=== PATIENT | female | born 1985 | race African-American/Black ===

== ENCOUNTER → 2018-11-27 | Outpatient (CLI) | payer OTHER ==
--- NOTE | 2018-11-27 11:46 | KCIC ---
MR of the right shoulder Indication: Right shoulder pain, fell off a truck last June.. Comparison: None are available. Technique: Standard multiplanar sequences are obtained. Findings: Artifact: No significant image degradation. Acromioclavicular joint:Intact. Rotator cuff: * Supraspinatus-infraspinatus tendon: Mild thickening and signal compatible with tendinosis, no evidence of a tear. * Subscapularis tendon: Intact * Muscle bulk: Within normal limits * Subacromial subdeltoid bursa: No significant effusion. Fluid: No significant glenohumeral effusion. Glenohumeral cartilage: Intact. Labrum: Tiny defect at the posterior chondral labral junction at about 9:00, probably a normal defect rather than a tear. Labrum otherwise intact. Biceps tendon: Intact Bones: No lesion or acute fracture. Soft tissue: No acute findings.. Impression: 1. Mild rotator cuff tendinosis. 2. Tiny posterior labral defect, more likely a normal variant rather than a tear. Electronically signed by: Thomas Askew MD (11/27/2018 11:41 AM) [id number]
== END | disposition home or self-care (01) ==
LOC: KCIC MRI 09:06
DX: M25.511 Pain in right shoulder (principal); V69.88XA Occupant (driver) (passenger) of heavy transport vehicle injured in other specified transport accidents, initial encounter; Y93.89 Activity, other specified; Y92.89 Other specified places as the place of occurrence of the external cause; Y99.8 Other external cause status
CPT/HCPCS: 73221